=== PATIENT | female | born 1970 | race Caucasian/White ===

== ENCOUNTER 2016-05-18 12:58 | Emergency (ER) | payer BC ==
[~2016-05-18 12:58] MED LIST: ADDERALL XR 3030 MG PO; ADVAIR 25028 BLISTE1 INH; ALLI60 MG; AMITRIPTYLINE H10 M1 PO; AZITHROMYCIN250 M1 PO; BACLOFEN10 M1 PO; BENADRYL25 M3 PO; BENADRYL25 MG PO; BENTYL10 MG PO; BONINE25 MG; CEBERCLON1 MG; CETIRIZINE HCL10 M1 PO; DELTASONE20 MG PO; FAMOTIDINE10 M1 PO; FEROSUL325 M1 PO; FOCALIN XR30 MG PO; FROVA2.5 MG PO; GAS RELIEF125 M4 PO; HCTZ/RESERPINE/1 TAB; HYDROCHLOROTH12.5 M2 PO; IMITREX100 M2 PO; IMITREX100 MG PO; IRON325 M3 PO; K-TAB10 MEQ; KLONOPIN0.5 M1 PO; KLONOPIN0.5 MG PO; LASIX20 M1 PO; LISINOPRIL-HCT1 EAC2 PO; MECLIZINE HCL25 M3 PO; MIGRAINE RELIEF1 TAB; MIGRANAL0.5 MG/SPR; MIRAPEX0.5 MG; MULTIVITAMIN1 CAP; NORCO 5/325 TAB1 TAB PO; OMEPRAZOLE20 M3 PO; POTASSIUM CHLO20 ME3 PO; PREDNISONE10 M1 PO; PRILOSEC OTC20 M1 PO; PRILOSEC20 M1 PO; PROAIR HFA8.5 GM INH; PROMETHAZINE25 MG PO; RELPAX40 MG; REQUIP4 M1 PO; REQUIP4 MG PO; ROPINIROLE HCL4 M2 PO; ROPINIROLE HCL4 MG PO; SYNTHROID175 MC1 PO; SYNTHROID175 MCG; SYNTHROID200 MCG PO; TESSALON PERLE100 M1 PO; TIZANIDINE HCL4 MG; TOPAMAX; TUMS CALCIUM F750 MG; VITAMIN B12 PO; VITAMIN B12-FO1 EAC1 PO; VITAMIN D1000 UNI3 PO; VITAMIN D2000 UNIT PO; VITAMIN D50000 UNIT PO; ZANAFLEX4 M PO; ZANAFLEX4 M3 PO; ZANAFLEX4 MG PO; ZITHROMAX250 M1 PO; ZOFRAN4 M2 PO; [UNRECOGNIZED DRUG - REMARK] PO
[2016-05-18] MEDS ORDERED: VITAMIN D250000 UNI1 PO (13:13)
[2016-05-18] MEDS ORDERED: LISINOPRIL-HCT1 EAC2 PO (14:07)
[2016-05-18] MEDS ORDERED: PRINIVIL20 M1 PO (14:08)
[2016-05-18] MEDS ORDERED: HYDROCHLOROTHIA25 M1 PO (14:08)
[2016-05-18 14:23] LABS: BASO % 0.1 % (0-2); EOS % 2.1 % (0-7); EOSINOPHIL ABSOLUTE COUNT 0.2 tho/cmm (0.0-0.7); HGB-HEMOGLOBIN 13.1 gm/dl (12.0-15.5); IMMATURE GRANULOCYTES ABSOLUTE 0.03 tho/cmm (0-0.03); IMMATURE GRANULOCYTES PERCENT 0.3 % (0-0.3); LYMPH ABSOLUTE COUNT 1.9 tho/cmm (0.8-4.5); MCH (MEAN CORPUSCULAR HGB) 27.4 pg (28.0-32.0); MCHC MEAN CORPUSCULAR HGB CONC 32.8 % (32.0-36.0); MCV (MEAN CELL VOLUME) 83.7 fl (82.0-96.0); MONO % 5.2 % (0-12); MONOCYTE ABSOLUTE COUNT 0.5 tho/cmm (0.0-1.2); NEUTROPHIL ABSOLUTE COUNT 7.4 tho/cmm (1.6-8.0); NEUTROPHIL-AUTOMATED 7.4 tho/cmm (1.6-8.0); NEUTROPHILS % 73.3 % (40-80); PLATELET COUNT 356 tho/cmm (150-450); RED BLOOD COUNT 4.78 mil/cmm (4.00-5.20); RED CELL DISTRIBUTION WIDTH 15.1 % (12.4-16.4); WHITE BLOOD COUNT 10.1 tho/cmm (4.0-10.0)
[2016-05-18] MEDS ORDERED: BACLOFEN10 M1 PO (14:30)
[2016-05-18 14:38] LABS: PREGNANCY-SERUM NEGATIVE (NEGATIVE)
[2016-05-18 14:42] LABS: ALB/GLOB RATIO 0.9 (0.8-2.0); ALBUMIN 3.6 g/dl (3.5-5.0); ALKALINE PHOSPHATASE 119 U/L (33-138); ALT/SGPT 20 U/L (12-78); ANION GAP 13 mmol/L (0-20); AST/SGOT 16 U/L (10-40); BILIRUBIN,TOTAL 0.4 mg/dl (0-1.5); BLOOD UREA NITROGEN 12 mg/dl (6-24); CALCIUM 8.6 mg/dl (8.5-10.5); CARBON DIOXIDE-VENOUS 27 mmol/L (22-32); CHLORIDE 106 mmol/l (96-110); CREATININE 0.84 mg/dl (0.50-1.10); GLUCOSE 107 mg/dL (70-110); POTASSIUM 3.7 mmol/L (3.7-5.1); SODIUM 142 mmol/L (135-145); eGFR VALUE FOR BLACK >90 mL/Min
[2016-05-18 14:46] LABS: TSH-THYROID STIMULATING HORM. 7.58 uIU/ml (0.40-3.80)
[2016-09-13] MEDS ORDERED: PREDNISONE20 M1 PO (06:31)
[2016-10-16] MEDS ORDERED: PRILOSEC OTC20 M1 PO (05:56)
[2016-10-24] MEDS ORDERED: BUSPAR (02:41)
[2016-10-24] MEDS ORDERED: ZOFRAN4 M2 PO (05:07)
[2016-10-24] MEDS ORDERED: NORCO 5/3251 TAB PO (05:07)
[2016-11-21] MEDS ORDERED: POTASSIUM CHLO20 ME3 PO (21:20)
== END 2016-05-18 16:05 ==
LOC: EDMED 12:58
PROVIDERS: Emergency Medicine
DX: I10 Essential (primary) hypertension (principal); E03.9 Hypothyroidism, unspecified; R60.0 Localized edema; Z91.19 Patient's noncompliance with other medical treatment and regimen; J45.909 Unspecified asthma, uncomplicated; Z90.89 Acquired absence of other organs; Z79.890 Hormone replacement therapy; Z79.51 Long term (current) use of inhaled steroids; Z79.899 Other long term (current) drug therapy

== ENCOUNTER 2016-11-10 16:44 | Emergency (ER) | payer BC ==
[~2016-11-10] VITALS: Ht 172.7 cm; Wt 122.5 kg
[~2016-11-10 16:44] MED LIST changes: +BUSPAR; +HYDROCHLOROTHIA25 M1 PO; +NORCO 5/3251 TAB PO; +PREDNISONE20 M1 PO; +PRINIVIL20 M1 PO; +VITAMIN D250000 UNI1 PO
[2016-11-10] MEDS ORDERED: IBUPROFEN200 M2 PO (17:30)
[2016-11-10] MEDS ORDERED: STOOL SOFTENER100 M3 (17:31)
[2016-11-10 17:59] LABS: URINE BILIRUBIN NEGATIVE (NEG); URINE BLOOD NEGATIVE (NEG); URINE GLUCOSE (UA) NEGATIVE (NEG); URINE KETONE NEGATIVE (NEG); URINE LEUKOCYTE ESTERASE POSITIVE (NEG); URINE NITRITE NEGATIVE (NEG); URINE PROTEIN NEGATIVE (NEG)
[2016-11-10 18:01] LABS: URINE APPEARANCE CLEAR; URINE COLOR YELLOW
[2016-11-10 18:06] LABS: URINE BACTERIA 1+; URINE RBC 0 /[HPF] (0-5)
[2016-11-10 18:16] LABS: BASO % 0.1 % (0-2); EOS % 3.7 % (0-7); EOSINOPHIL ABSOLUTE COUNT 0.4 tho/cmm (0.0-0.7); HCT-HEMATOCRIT 38.9 % (34.0-49.0); HGB-HEMOGLOBIN 12.5 gm/dl (12.0-15.5); IMMATURE GRANULOCYTES ABSOLUTE 0.02 tho/cmm (0-0.03); IMMATURE GRANULOCYTES PERCENT 0.2 % (0-0.3); LYMPH % 17.9 % (20-45); LYMPH ABSOLUTE COUNT 1.8 tho/cmm (0.8-4.5); MCH (MEAN CORPUSCULAR HGB) 27.8 pg (28.0-32.0); MCHC MEAN CORPUSCULAR HGB CONC 32.1 % (32.0-36.0); MCV (MEAN CELL VOLUME) 86.4 fl (82.0-96.0); MEAN PLATELET VOLUME 8.9 cmc (9.4-12.4); MONO % 6.2 % (0-12); MONOCYTE ABSOLUTE COUNT 0.6 tho/cmm (0.0-1.2); NEUTROPHIL ABSOLUTE COUNT 7.2 tho/cmm (1.6-8.0); NEUTROPHIL-AUTOMATED 7.2 tho/cmm (1.6-8.0); NEUTROPHILS % 71.9 % (40-80); PLATELET COUNT 357 tho/cmm (150-450); RED CELL DISTRIBUTION WIDTH 14.4 % (12.4-16.4)
[2016-11-10 18:34] LABS: ALB/GLOB RATIO 0.7 (0.8-2.0); ALBUMIN 3.2 g/dl (3.5-5.0); ALKALINE PHOSPHATASE 113 U/L (33-138); ALT/SGPT 24 U/L (12-78); BILIRUBIN,TOTAL 0.2 mg/dl (0-1.5); BLOOD UREA NITROGEN 12 mg/dl (6-24); CALCIUM 8.3 mg/dl (8.5-10.5); CARBON DIOXIDE-VENOUS 27 mmol/L (22-32); CHLORIDE 108 mmol/l (96-110); CREATININE 0.82 mg/dl (0.50-1.10); GLUCOSE 99 mg/dL (70-110); LIPASE 108 U/L (73-393); SODIUM 141 mmol/L (135-145); eGFR VALUE FOR BLACK >90 mL/Min
[2016-11-10 18:38] LABS: ANION GAP 10 mmol/L (0-20); AST/SGOT 20 U/L (10-40)
== END 2016-11-10 20:40 ==
LOC: EDMED 16:44
PROVIDERS: Emergency Medicine
DX: R09.1 Pleurisy (principal); I10 Essential (primary) hypertension; E03.9 Hypothyroidism, unspecified; K21.9 Gastro-esophageal reflux disease without esophagitis; G43.909 Migraine, unspecified, not intractable, without status migrainosus; J45.909 Unspecified asthma, uncomplicated; Z79.890 Hormone replacement therapy; Z79.51 Long term (current) use of inhaled steroids; Z79.899 Other long term (current) drug therapy
CPT/HCPCS: J1170; J1200; J1720; J2405; Q9967